=== PATIENT | male | born 1965 | race Two or more races ===

== ENCOUNTER 2019-01-24 14:40 | Emergency (ER) | payer OTHER ==
[~2019-01-24] VITALS: Ht 185.4 cm; Wt 95.3 kg
[2019-01-24] MEDS ORDERED: TETANUS-DIPTH-ACEL PERTUSSIS 0.5ML SYRG IM ONE (19:15)
[2019-01-24 19:30] VITALS: BP 148/92
[2019-01-24] MEDS ORDERED: LIDOCAINE 1% HCL (LOCAL ANESTH.) INJ 20ML MDV IJ ONE (19:45)
== END 2019-01-24 20:13 | disposition home or self-care (01) ==
LOC: ER 14:40
DX: S61.211A Laceration without foreign body of left index finger without damage to nail, initial encounter (principal); W45.8XXA Other foreign body or object entering through skin, initial encounter; Y93.89 Activity, other specified; Y99.0 Civilian activity done for income or pay; Y92.89 Other specified places as the place of occurrence of the external cause
CPT/HCPCS: 12002; 90471; 90715